=== PATIENT | male | born 1985 | race Hispanic/Latino ===

== ENCOUNTER 2021-08-27 16:34 | Emergency (ER) | payer OTHER ==
[~2021-08-27] VITALS: Ht 165.1 cm; Wt 66.3 kg
[2021-08-27] VITALS (8 sets, daily range): BP systolic 106–123; BP diastolic 69–85
[2021-08-27] MEDS ORDERED: MOTRIN800 MG PO (18:06)
== END 2021-08-27 18:29 | disposition home or self-care (01) | DRG 605 ==
LOC: ED 16:34
DX: S50.02XA Contusion of left elbow, initial encounter (principal); W22.09XA Striking against other stationary object, initial encounter; Y92.89 Other specified places as the place of occurrence of the external cause; Y99.0 Civilian activity done for income or pay

== ENCOUNTER 2021-09-14 16:38 | Emergency (ER) | payer OTHER ==
[~2021-09-14] VITALS: Ht 152.4 cm; Wt 66.3 kg
[2021-09-14] VITALS (9 sets, daily range): BP systolic 124–137; BP diastolic 68–93
[~2021-09-14 16:38] MED LIST: MOTRIN800 MG PO
[2021-09-14] MEDS ORDERED: MEDDOSEPAK PO (18:25)
== END 2021-09-14 18:48 | disposition home or self-care (01) | DRG 605 ==
LOC: ED 16:38
DX: S50.02XA Contusion of left elbow, initial encounter (principal); X58.XXXA Exposure to other specified factors, initial encounter